=== PATIENT | female | born 1970 | race Caucasian/White ===

== ENCOUNTER 2017-01-18 10:50 | Emergency (ER) | payer BC ==
[~2017-01-18] VITALS: Ht 170.2 cm; Wt 65.8 kg
--- OUTSIDE RECORDS SUMMARY | 2017-01-18 10:57 | XMS REPORT | Continuity of Care Document ---
Author Author [facility] Address Unknown Phone Unavailable Allergies Medications Problems Procedures Results Encounters ACCT No. Visit Date/Time Discharge Status Pt. Type Provider Facility Loc./Unit Complaint [id number] 05/08/2013 15:26:32 05/08/2013 23: 59:59 CLS Outpatient Tete Nelson
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
[2017-01-18] MEDS ORDERED: fentaNYL INJECTION 100 MCG/2 ML AMP IM STA (11:23)
[2017-01-18] MEDS ORDERED: ORPHENADRINE 60 MG/2 ML (NORFLEX) AMP IM STA (11:23)
[2017-01-18] MEDS ORDERED: TETANUS,DIPTH,PERTUSS P/F (BOOSTRIX) 0.5 ML VIAL IM STA (11:23)
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
[2017-01-18] MEDS ORDERED: ORPH100T PO (13:08)
[2017-01-18] MEDS ORDERED: HYDR-3812 PO (13:08)
[2017-01-18 13:11] VITALS: BP 150/104
== END 2017-01-18 13:18 | disposition home or self-care (01) ==
LOC: EDUNIT# 10:50 → ER 10:53
DX: S06.9X9A Unspecified intracranial injury with loss of consciousness of unspecified duration, initial encounter (principal); S00.03XA Contusion of scalp, initial encounter; S13.4XXA Sprain of ligaments of cervical spine, initial encounter; S33.5XXA Sprain of ligaments of lumbar spine, initial encounter; Z23 Encounter for immunization; Z90.710 Acquired absence of both cervix and uterus; V86.39XA Unspecified occupant of other special all-terrain or other off-road motor vehicle injured in traffic accident, initial encounter
CPT/HCPCS: 70450; 71010; 72125; 72131; 90471; 90715; 96372; 99282; 99284

== ENCOUNTER → 2018-05-19 | Outpatient (CLI) | payer BC ==
[~2018-05-19] MED LIST: ACHD5005 PO; ORPH100T PO
--- NOTE | 2018-05-19 21:26 | Diagnostic Imaging Report ---
INDICATION: Palpable lump in the right breast. COMPARISON: Correlation is made with prior mammograms from 03/30/2012 and 03/26/2011. EXAMINATION: 2D and 3D bilateral diagnostic mammography was performed with CAD. The current study was also evaluated with a Computer Aided Detection (CAD) system. FINDINGS: A BB marker was placed at the area of palpable abnormality in the superior and outer right breast. Both breasts remain heterogeneously dense, limiting the sensitivity of mammography. No mass or malignant appearing microcalcifications are seen. In particular, no abnormality at the area of the BB marker is seen. Axillae are unremarkable. IMPRESSION: No mammographic features suspicious for malignancy are identified. Even so, sonographic interrogation of the area of palpable abnormality in the upper right breast is recommended and will be performed today. ACR BI-RADS Category 0: Incomplete. (Needs additional imaging evaluation). Result letter will be mailed to the patient. Note: At least 10% of breast cancer is not imaged by mammography. Dictated by: Dictated on workstation # [id number]
--- NOTE | 2018-05-19 21:34 | Diagnostic Imaging Report ---
INDICATION: Right breast lump. COMPARISON: Correlation is made with diagnostic mammogram from earlier the same day. EXAMINATION: Sonographic interrogation of all four quadrants as well as the retroareolar region of the right breast was performed. FINDINGS: No sonographic abnormality is seen. No solid or cystic mass is detected. IMPRESSION: No sonographic abnormality is seen. Clinical followup is recommended to confirm stability. ACR BI-RADS Category 1: Negative. Result letter will be mailed to the patient. Note: At least 10% of breast cancer is not imaged by mammography. Dictated by: Dictated on workstation # [id number]
== END ==
LOC: RAD 13:04
PROVIDERS: ATTEND Family Medicine
DX: N63.10 Unspecified lump in the right breast, unspecified quadrant (principal)
CPT/HCPCS: 76641; 77066

== ENCOUNTER → 2020-04-12 | Outpatient (CLI) | payer BC ==
[~2020-04-12] MED LIST changes: +CATHETER FLUSH 10 ML SYR IV PRN
--- NOTE | 2020-04-12 14:24 | Diagnostic Imaging Report ---
INDICATION: Elevated liver enzymes. Patient was administered 5.0 mCi technetium 99m Choletec intravenously and imaging of the abdomen was performed. At 45 minutes patient ingested 8 ounces of Ensure and a gallbladder ejection fraction was calculated. Patient denied discomfort during the exam. There is homogeneous uptake of activity by the liver with prompt excretion of activity into the gallbladder and common duct. There is normal passage of activity into the small bowel. Gallbladder ejection fraction is calculated to be 66%. Normal values are 35% or greater. IMPRESSION: 1. Patent cystic duct and common bile duct. 2. Normal gallbladder ejection fraction of 66%. Dictated by: Dictated on workstation # [id number]
== END ==
LOC: CARD 10:00
PROVIDERS: ATTEND Family Medicine
DX: R94.5 Abnormal results of liver function studies (principal)
CPT/HCPCS: 78227; A9537

== ENCOUNTER 2021-07-14 05:33 | Outpatient (CLI) | payer BC ==
[~2021-07-14] VITALS: Ht 170.2 cm; Wt 67.3 kg
[~2021-07-14 05:33] MED LIST changes: -CATHETER FLUSH 10 ML SYR IV PRN
== END 2021-07-14 13:47 | disposition home or self-care (01) ==
LOC: PREOP 05:33
PROVIDERS: ATTEND Podiatrist Foot & Ankle Surgery
DX: Z01.818 Encounter for other preprocedural examination (principal)

== ENCOUNTER 2021-07-21 07:40 | Day surgery (SDC) | payer BC ==
[2021-07-21] VITALS (11 sets, daily range): BP systolic 110–146; BP diastolic 63–90
[~2021-07-21] VITALS: Ht 170.2 cm; Wt 73.4 kg
[2021-07-21] MEDS ORDERED: LACTATED RINGERS 1,000 ML IV PRN (07:45)
[2021-07-21] MEDS ORDERED: ceFAZolin INJECTION 1,000 MG VIAL IV ONE (07:45)
[2021-07-21] MEDS ORDERED: BUPIVACAINE 0.5% 30 ML (SENSORCAINE) VIAL ONE (07:48)
[2021-07-21] MEDS ORDERED: LIDOCAINE 1% INJ 50 ML (XYLOCAINE) VIAL ONE (07:48)
[2021-07-21] MEDS ORDERED: ONDANSETRON 4 MG/2 ML (SDV) Z0FRAN ONE (08:25)
[2021-07-21] MEDS ORDERED: SEVOFLURANE (ULTANE) 15 ML INHAL SOLN ONE ×2 (08:25→10:08)
[2021-07-21] MEDS ORDERED: proPOfol 200 MG/20 ML (DIPRIVAN) VIAL IV ONE (08:25)
[2021-07-21] MEDS ORDERED: fentaNYL INJ 100 MCG/2 ML AMP ONE (08:25)
[2021-07-21] MEDS ORDERED: LIDOCAINE PF 2% 5 ML (XYLOCAINE) VIAL ONE (08:25)
[2021-07-21] MEDS ORDERED: MIDAZOLAM 2 MG/2 ML (VERSED) VIAL ONE (08:25)
--- NOTE | 2021-07-21 08:58 | Progress Note-Pre Operative ---
Pre-Operative Progress Note H&P Reviewed The H&P was reviewed, patient examined and no changes noted. Date Seen by Provider: Jul 21, 2021 Time Seen by Provider: 08:57 Date H&P Reviewed: Jul 21, 2021 Time H&P Reviewed: 08:58 Pre-Operative Diagnosis: Tarsal Tunnel Syndrome, Plantar Fasciitis, left HERIBERTO CHAHAL DPM Jul 21, 2021 08:58
[2021-07-21] MEDS ORDERED: KETOROLAC 30 MG/ML VIAL ONE (10:08)
--- NOTE | 2021-07-21 10:24 | Progress Note-Post Operative ---
Post-Operative Progess Note Surgeon (s)/Sales Assistant Displays (s) Surgeon HERIBERTO CHAHAL DPM Sales Assistant Displays: none Pre-Operative Diagnosis Tarsal Tunnel Syndrome, Plantar Fasciitis, left Post-Operative Diagnosis Same Procedure & Operative Findings Date of Procedure 07/21/21 Procedure Performed/Findings Tarsal Tunnel Release, left Plantar Fascial Release, left Anesthesia Type General Estimated Blood Loss Estimated blood loss (mL): Minimal Specimens/Packing Specimens Removed Plantar Fascia, left HERIBERTO CHAHAL DPM Jul 21, 2021 10:24
[2021-07-21] MEDS ORDERED: ACHD5005 PO (10:26)
[2021-07-21] MEDS ORDERED: LACTATED RINGERS 1,000 ML IV SCH (10:30)
[2021-07-21] MEDS ORDERED: HYDROmorphone 2 MG/ML VIAL (DILAUDID) IV ONE (10:30)
[2021-07-21] MEDS ORDERED: HYDROcodone/APAP 5 MG/325 MG (LORTAB) TAB PO PRN (10:30)
[2021-07-21] MEDS ORDERED: ONDANSETRON 4 MG/2 ML (SDV) Z0FRAN IVP PRN (10:30)
--- NOTE | 2021-07-21 10:35 | Anesthesia-General Post-Op ---
General Patient Condition Mental Status/LOC: Same as Preop Cardiovascular: Satisfactory Nausea/Vomiting: Absent Respiratory: Satisfactory Pain: Controlled Complications: Absent Post Op Complications Complications None Follow Up Care/Instructions Patient Instructions None needed. Anesthesia/Patient Condition Patient Condition Patient is doing well, no complaints, stable vital signs, no apparent adverse anesthesia problems. No complications reported per nursing. D/C home per [facility] Criteria: Yes BIRGIT MERCER CRNA Jul 21, 2021 10:35
--- NOTE | 2021-07-21 19:43 | OPERATIVE REPORT ---
DATE OF SERVICE: 07/21/2021 SURGEON: Heriberto Chahal DPM PREOPERATIVE DIAGNOSES: 1. Tarsal tunnel syndrome, left. 2. Plantar fasciitis, left. POSTOPERATIVE DIAGNOSES: 1. Tarsal tunnel syndrome, left. 2. Plantar fasciitis, left. PROCEDURES: 1. Tarsal tunnel release, left. 2. Plantar fascial release, left. WOUND CLASS: Clean. ANESTHESIA: General. HEMOSTASIS: Pneumatic thigh tourniquet at 250 mmHg. INDICATIONS: This 51-year-old female presents complaining of a painful left foot and heel. Conservative therapy is met with unsatisfactory results and the patient is agreeable to surgical intervention after risks and complications were discussed at length. No guarantees were extended to the patient and she is willing to proceed. DESCRIPTION OF PROCEDURE: The patient was brought back to the operating table, placed in secure supine position. Appropriate timeout was performed. General anesthetic was then induced. The left lower extremity thigh tourniquet was applied over several layers of padding. The left foot was then prepped and draped in the normal sterile manner. The left foot was then elevated, allowed to exsanguinate after which the tourniquet was inflated to 250 mmHg. Attention was then directed to the medial aspect of the left foot and ankle where a 10 cm longitudinal curvilinear incision was created just posterior to the medial malleolus extending inferiorly and slightly anteriorly into the plantar aspect of the foot. The incision was deepened in the same plane with great care to identify and retract all vital neurovascular structures. Blunt dissection was carried out through the subcutaneous tissue down to the flexor retinaculum. The flexor retinaculum was carefully tented and incised from mid incision superiorly exposing the tarsal tunnel. The underlying venae comitantes was visualized. No specific abnormality was identified deeper to this area. There was some tortuous venous tissue noted in this area. The incision was extended distally overlying the abductor hallucis muscle belly where the fascia was released overlying this area. The fascia between the abductor hallucis and the quadratus plantae muscle belly were identified and the ana pedis was dilated digitally. The abductor muscle belly was medially retracted where we could visualize and safely incise the deep fascia. The deep fascia was released all the way through to the plantar aspect of the foot again with great care to preserve neurovascular tissue. Attention was then directed to the plantar aspect of the foot where the medial and plantar bands of the plantar fascia were identified. A 1 cm section of the plantar fascia was sent for gross and microscopic evaluation. It was noted to be quite thickened to the central band. Again, the flexor digitorum brevis muscle belly was identified underneath the plantar fascia. The release of the neurovascular bundle from superior to the inferior aspect of the adductor hallucis was identified. No other abnormalities were seen. The tourniquet was released and no active bleeders were identified. Small venous oozing was cauterized. The wound was flushed with copious amounts of normal saline and closure was then performed in layers. Superficial closure to the subcutaneous tissue was performed with 4-0 Vicryl, skin closure with 4-0 Prolene in a horizontal mattress type stitch. Postoperative injection consisted of 15 mL of 0.5% Marcaine injected in local infusion to the surgical site followed by 10 mg of dexamethasone to the inferior aspect of the heel area at the plantar fascial insertion. Postoperative dressing consisted of Betadine soaked Adaptic, sterile 4 x 4's, Kerlix, soft roll, posterior splint all secured with two Bola wraps. The patient tolerated the anesthesia and procedure well, was transported from the operating room to the recovery area with vital signs stable and vascular status intact to all digits of the left foot. She is to be partial weightbearing with minimal heel contact with crutches. We will see the patient back in the office in 10 days' period of time or sooner if necessary. She was given a prescription for hydrocodone for pain relief. Job ID: [id number] DocumentID: [id number] Dictated Date: 07/21/2021 10:34:48 Program Therapist Date: 07/21/2021 19:42:14 Dictated By: HERIBERTO CHAHAL DPM
== END 2021-07-21 12:50 | disposition home or self-care (01) ==
LOC: SDC 07:40
PROVIDERS: ATTEND Podiatrist Foot & Ankle Surgery
DX: G57.52 Tarsal tunnel syndrome, left lower limb (principal); M72.2 Plantar fascial fibromatosis
CPT/HCPCS: 87081